=== PATIENT | female | born 1985 | race Two or more races ===

== ENCOUNTER 2018-05-18 06:19 | Day surgery (SDC) | payer OTHER, MEDICAID ==
[2018-05-18] MEDS ORDERED: BACITRACIN/POLYMYXIN 28.35 GM OINT TOP (10:31)
[2018-05-18] MEDS ORDERED: FENTAnyl 50 MCG/ML VIAL (10:51)
[2018-05-18] MEDS ORDERED: METOCLOPRAMIDE 10 MG INJ (11:00)
[2018-05-18] MEDS ORDERED: PROPOFOL 20 ML (11:04)
[2018-05-18] MEDS ORDERED: ONDANSETRON 4 MG INJ (11:04)
[2018-05-18] MEDS ORDERED: LIDOCAINE 2% (SDV) 5 ML INJ (11:04)
[2018-05-18] MEDS ORDERED: KETOROLAC 30 MG INJ (11:23)
[2018-05-18] MEDS ORDERED: CEFAZOLIN 1 GM INJ (11:23)
[2018-05-18] MEDS: LIDOCAINE 1% (MPF) 30 ML INJ (11:29)
[2018-05-18] MEDS: ROPIVACAINE 0.5 % 30 ML VIAL (11:30)
[2018-05-18] MEDS ORDERED: DIPHENHYDRAMINE 50 MG INJ IV (11:30)
[2018-05-18] MEDS ORDERED: HYDROmorphONE 1 MG/5 ML IV SYRINGE IV ×2 (11:30)
[2018-05-18] MEDS ORDERED: ONDANSETRON 4 MG INJ IV (11:30)
[2018-05-18] MEDS ORDERED: OXYCODONE/ACETAMINOPHEN (5/325) TAB PO (11:30)
[2018-05-18] MEDS: morphine SULFATE/PF (10 MG/10 ML) INJ (12:31)
[2018-05-18] MEDS: MEPERIDINE 25 MG INJ IV (13:34)
[2018-05-18] MEDS: morphine 2 MG INJ IV (13:35)
[2018-05-18] MEDS: HYDROmorphONE 1 MG/5 ML IV SYRINGE IV (13:36)
[2018-05-18] MEDS: OXYCODONE/ACETAMINOPHEN (5/325) TAB PO (13:45)
== END 2018-05-18 15:15 | disposition home or self-care (01) ==
LOC: SDS 06:19
DX: M23.262 Derangement of other lateral meniscus due to old tear or injury, left knee (principal); M94.262 Chondromalacia, left knee
CPT/HCPCS: 29881; 82306; 84703